=== PATIENT | female | born 1950 | race Hispanic/Latino ===

== ENCOUNTER 2018-03-12 19:48 | Inpatient (IN) | payer OTHER, MEDICARE ==
[~2018-03-12] VITALS: Ht 152.4 cm; Wt 85.9 kg
[~2018-03-12 19:48] MED LIST: ETOMIDATE 2 MG/ML 10 ML VIAL IVP ONE; SUCCINYLCHOLINE CHLORIDE 20 MG/ML 10 ML VIAL IVP ONE
[2018-03-12] MEDS ORDERED: FOSPHENYTOIN SODIUM 500 MG/10ML VIAL IJ ONE (19:56)
[2018-03-12] MEDS ORDERED: SODIUM CHLORIDE 0.9% 500ML 500 ML IV ONE (19:59)
[2018-03-12] MEDS ORDERED: PROPOFOL 1000 MG/100 ML 100 ML IV ONE ×2 (20:05→23:45)
[2018-03-12 20:09] LABS: BASOPHILS % (AUTO) 0.9 % (0.0-5.0); EOSINOPHILS % (AUTO) 2.6 % (0.0-8.0); HEMATOCRIT 41.5 % (36-48); LYMPHOCYTES % (AUTO) 40.5 % (21.0-51.0); MEAN CORPUSCULAR HEMOGLOBIN 31.5 pg (27.0-33.0); MEAN CORPUSCULAR HGB CONC 33.9 g/dL (32.0-36.0); MEAN CORPUSCULAR VOLUME 92.9 fL (79-99); MONOCYTES % (AUTO) 7.8 % (3.0-13.0); NEUTROPHILS % (AUTO) 48.2 % (40.0-77.0); PLATELET COUNT (AUTO) 320 K/uL (130-400); RED BLOOD CELL COUNT(AUTO) 4.46 MIL/uL (4.00-5.50); RED CELL DISTRIBUTION WIDTH 14.7 % (11.0-15.5); WHITE BLOOD COUNT (AUTO) 12.9 K/uL (4.8-10.8)
[2018-03-12 20:24] LABS: CREATININE 1.4 mg/dL (0.5-1.5); INR 0.98 (0.85-1.15); PARTIAL THROMBOPLASTIN TIME 24.5 SEC (26.3-35.5); POTASSIUM 4.5 mmol/L (3.5-5.1); PROTHROMBIN TIME 10.3 SEC (9.6-11.6)
[2018-03-12] MEDS ORDERED: IOPAMIDOL-370 100 ML VIAL IV ONE (20:34)
[2018-03-12 20:44] LABS: ALBUMIN 3.4 g/dL (3.5-5.0); BILIRUBIN,TOTAL 0.2 mg/dL (0.2-1.0); TOTAL PROTEIN, SERUM 8.9 g/dL (6.0-8.3)
[2018-03-12 21:42] LABS: ABG HCO3 21.6 mmol/L (21.0-28.0); ABG OXYGEN SATURATION 94.9 % (95.0-99.0); ABG PCO2 37 mmHg (32-45)
[2018-03-12 21:45] LABS: APPEARANCE,URINE Clear (CLEAR); BILIRUBIN,URINE Negative (NEGATIVE); COLOR,URINE Yellow (YELLOW); GLUCOSE, URINE (UA) TRACE mg/dL (NEGATIVE); KETONES,URINE Negative (NEGATIVE); LEUKOCYTE ESTERASE ,URINE Negative (NEGATIVE); NITRATE,URINE Positive (NEGATIVE); OCCULT BLOOD,URINE Trace (NEGATIVE); PH,URINE 5.5 (5.0-8.0); PROTEIN,URINE 300 (NEGATIVE); UROBILINOGEN,URINE 0.2 mg/dL (0.2-1.0)
[2018-03-12 21:53] LABS: AMPHET/METH SCREEN,URINE NEGATIVE (NEGATIVE); BARBITURATE SCREEN, URINE NEGATIVE (NEGATIVE); BENZODIAZEPINES SCREEN,URINE NEGATIVE (NEGATIVE); CANNABINOID SCREEN,URINE NEGATIVE (NEGATIVE); COCAINE SCREEN,URINE NEGATIVE (NEGATIVE); OPIATE SCREEN,URINE NEGATIVE (NEGATIVE); PHENCYCLIDINE SCREEN,URINE NEGATIVE (NEGATIVE)
[2018-03-12 21:58] LABS: BACTERIA,URINE Moderate /HPF (None Seen); SQUAMOUS EPITHELIAL CELL,UR Rare /HPF (0-2)
[2018-03-12] MEDS ORDERED: FENTANYL CITRATE PF 50 MCG/1 ML 2ML VIAL ONE (23:23)
[2018-03-12] MEDS ORDERED: MIDAZOLAM HCL 5 MG/ML 2ML VIAL IV ONE (23:24)
[2018-03-12] MEDS ORDERED: SODIUM CHLORIDE 0.9% 50 ML IV ONE (23:45)
[2018-03-13] VITALS (25 sets, daily range): BP systolic 89–162; BP diastolic 53–111
[2018-03-13] MEDS ORDERED: CEFTRIAXONE 1GM/D5W 50ML 50 ML IV SCH ×2 (00:15→09:00)
[2018-03-13] MEDS ORDERED: CEFTRIAXONE SODIUM 1 GM ONE (00:49)
[2018-03-13] MEDS ORDERED: CEFTRIAXONE SODIUM 1 GM IVP SCH (01:00)
[2018-03-13] MEDS: SODIUM CHLORIDE 0.9% IV SCH ×3 (01:00→18:27)
[2018-03-13] MEDS: PHENYTOIN SODIUM IV SCH ×3 (01:00→18:27)
[2018-03-13] MEDS ORDERED: PHENYTOIN SODIUM 50 MG/ML 2ML VIAL IV ONE (01:55)
[2018-03-13] MEDS ORDERED: SODIUM CHLORIDE 0.9% 100 ML IV ONE (01:56)
[2018-03-13] MEDS: PANTOPRAZOLE 40 MG/VIAL IVP SCH ×2 (02:24→11:43)
[2018-03-13] MEDS: SODIUM CHLORIDE 0.9% 1000ML 1,000 ML IV SCH ×2 (02:24→13:35)
[2018-03-13] MEDS: PROPOFOL 1000 MG/100 ML 100 ML IV PRN ×3 (04:26→17:24)
[2018-03-13] MEDS ORDERED: GADOBENATE DIMEGLUMINE 10 ML IV ONE (08:05)
[2018-03-13] MEDS ORDERED: ENOXAPARIN SODIUM 40 MG/0.4 ML SYRINGE SQ SCH (09:00)
[2018-03-13 10:13] LABS: ABG BASE EXCESS 0.2 mmol/L (-2.0-3.0); ABG HCO3 23.9 mmol/L (21.0-28.0); ABG OXYGEN SATURATION 96.2 % (95.0-99.0); ABG PCO2 36 mmHg (32-45)
[2018-03-13] MEDS ORDERED: MAGNESIUM 2GM PREMIX 50ML 50 ML IV PRN (10:15)
[2018-03-13] MEDS ORDERED: POTASSIUM CHLORIDE 10% ELIXIR 20 MEQ/15 ML UDCUP PO PRN (10:15)
[2018-03-13] MEDS ORDERED: LIDOCAINE HCL-MPF 1% 2ML VIAL IVP PRN ×2 (10:15)
[2018-03-13] MEDS ORDERED: POTASSIUM CHLORIDE 20 MEQ ERTAB PO PRN ×2 (10:15)
[2018-03-13] MEDS ORDERED: DEXTROSE 50%-WATER 50 ML DISP.SYRIN IV PRN (10:15)
[2018-03-13] MEDS ORDERED: GLUCAGON 1MG KIT 1 MG ML IM PRN (10:15)
[2018-03-13] MEDS ORDERED: POTASSIUM CHLORIDE 20MEQ/100ML 100 ML IV PRN (10:15)
[2018-03-13] MEDS ORDERED: NIMODIPINE 30 MG CAP PO SCH (10:30)
[2018-03-13 10:47] LABS: CREATININE 1.2 mg/dL (0.5-1.5); MAGNESIUM 1.7 mg/dL (1.80-2.40); MEAN CORPUSCULAR HEMOGLOBIN 32.3 pg (27.0-33.0); MEAN CORPUSCULAR VOLUME 92.2 fL (79-99); PLATELET COUNT (AUTO) 247 K/uL (130-400); RED BLOOD CELL COUNT(AUTO) 4.01 MIL/uL (4.00-5.50); RED CELL DISTRIBUTION WIDTH 14.7 % (11.0-15.5); WHITE BLOOD COUNT (AUTO) 10.8 K/uL (4.8-10.8)
[2018-03-13] MEDS: INSULIN HUMULIN R 100 UNIT/ML 3ML SQ SCH ×3 (11:30→21:00)
[2018-03-13] MEDS ORDERED: COMPOUND IV MISC 1 EACH IVSOLN MISC PRN (11:45)
[2018-03-13] MEDS ORDERED: GENTAMICIN PROTOCOL PER PHARMACY IV SCH (13:45)
[2018-03-13] MEDS ORDERED: CEFAZOLIN 2GM / 50 ML 50 ML IV SCH (13:45)
[2018-03-13 14:18] LABS: GLUCOSE, CSF 112 mg/dL (40-70); TOTAL PROTEIN, CSF 142 mg/dL (15-45)
[2018-03-13 14:27] LABS: APPEARANCE,CSF SLIGHTLY CLOUDY (CLEAR); COLOR,CSF PINK (COLORLESS); CSF TUBE NUMBER 1
[2018-03-13 14:29] LABS: RED BLOOD CELL1,CSF 1275 CMM (0-0); WHITE BLOOD CELL1,CSF 3 CMM (0-5)
[2018-03-13] MEDS: CEFAZOLIN SODIUM 1 GM VIAL IVP SCH ×2 (15:54→21:08)
[2018-03-13] MEDS: MIDAZOLAM 100MG-0.9% NS 100ML 100 ML IV PRN (18:27)
[2018-03-13] MEDS: VALPROATE SOD 250 MG/5 ML (PO) PO SCH (21:07)
[2018-03-13] MEDS: GENTAMICIN 80 MG/NS 100 ML PB 100 ML IV SCH (21:08)
[2018-03-13] MEDS: LEVETIRACETAM 500 MG in SODIUM CHLORIDE 0.9% 100 ML IV SCH (21:10)
[2018-03-13] MEDS: CHLORHEXIDINE GLUCONATE 473 ML MOUTHWASH MM SCH (21:12)
[2018-03-14] VITALS (32 sets, daily range): BP systolic 76–164; BP diastolic 50–113
[2018-03-14] MEDS: PANTOPRAZOLE 40 MG/VIAL IVP SCH ×3 (00:15→23:06)
[2018-03-14] MEDS: PHENYTOIN SODIUM IV SCH ×3 (00:31→17:06)
[2018-03-14] MEDS: SODIUM CHLORIDE 0.9% IV SCH ×3 (00:31→17:06)
[2018-03-14] MEDS: SODIUM CHLORIDE 0.9% 1000ML 1,000 ML IV SCH ×2 (00:36→17:06)
[2018-03-14] MEDS: PROPOFOL 1000 MG/100 ML 100 ML IV PRN ×2 (02:41→08:31)
[2018-03-14 03:58] LABS: BASOPHILS % (AUTO) 0.5 % (0.0-5.0); EOSINOPHILS % (AUTO) 1.1 % (0.0-8.0); LYMPHOCYTES % (AUTO) 19.6 % (21.0-51.0); MEAN CORPUSCULAR HEMOGLOBIN 32.5 pg (27.0-33.0); MEAN CORPUSCULAR HGB CONC 35.2 g/dL (32.0-36.0); MEAN CORPUSCULAR VOLUME 92.2 fL (79-99); MONOCYTES % (AUTO) 7.4 % (3.0-13.0); NEUTROPHILS % (AUTO) 71.4 % (40.0-77.0); PLATELET COUNT (AUTO) 260 K/uL (130-400); RED BLOOD CELL COUNT(AUTO) 4.12 MIL/uL (4.00-5.50); RED CELL DISTRIBUTION WIDTH 14.8 % (11.0-15.5); WHITE BLOOD COUNT (AUTO) 9.2 K/uL (4.8-10.8)
[2018-03-14 03:59] LABS: ABG BASE EXCESS 1.6 mmol/L (-2.0-3.0); ABG HCO3 24.6 mmol/L (21.0-28.0); ABG PCO2 34 mmHg (32-45)
[2018-03-14 04:04] LABS: ALBUMIN 2.8 g/dL (3.5-5.0); BILIRUBIN,TOTAL 0.3 mg/dL (0.2-1.0); CREATININE 1.1 mg/dL (0.5-1.5); PHENYTOIN (DILANTIN) 3.5 mcg/mL (10.0-20.0); POTASSIUM 3.7 mmol/L (3.5-5.1); TOTAL PROTEIN, SERUM 7.9 g/dL (6.0-8.3)
[2018-03-14] MEDS: HYDRALAZINE HCL 20 MG/ML VIAL IV PRN (04:50)
[2018-03-14] MEDS: CEFAZOLIN SODIUM 1 GM VIAL IVP SCH (05:29)
[2018-03-14] MEDS: INSULIN HUMULIN R 100 UNIT/ML 3ML SQ SCH ×4 (07:30→23:30)
[2018-03-14] MEDS: GENTAMICIN 80 MG/NS 100 ML PB 100 ML IV SCH (08:24)
[2018-03-14] MEDS: LEVETIRACETAM 500 MG in SODIUM CHLORIDE 0.9% 100 ML IV SCH ×2 (08:24→20:45)
[2018-03-14] MEDS: VALPROATE SOD 250 MG/5 ML (PO) PO SCH ×2 (08:24→20:45)
[2018-03-14] MEDS: CHLORHEXIDINE GLUCONATE 473 ML MOUTHWASH MM SCH ×3 (08:25→20:09)
[2018-03-14] MEDS: MIDAZOLAM 100MG-0.9% NS 100ML 100 ML IV PRN (19:24)
[2018-03-14] MEDS ORDERED: FENTANYL 2500MCG+NS 250ML 250 ML IV ONE (20:24)
[2018-03-15] VITALS (25 sets, daily range): BP systolic 120–187; BP diastolic 52–94
[2018-03-15] MEDS: PHENYTOIN SODIUM IV SCH ×3 (00:13→18:05)
[2018-03-15] MEDS: SODIUM CHLORIDE 0.9% IV SCH ×3 (00:13→18:05)
[2018-03-15 04:17] LABS: BASOPHILS % (AUTO) 0.7 % (0.0-5.0); EOSINOPHILS % (AUTO) 2.9 % (0.0-8.0); HEMATOCRIT 34.9 % (36-48); LYMPHOCYTES % (AUTO) 14.9 % (21.0-51.0); MEAN CORPUSCULAR HEMOGLOBIN 31.9 pg (27.0-33.0); MEAN CORPUSCULAR HGB CONC 34.4 g/dL (32.0-36.0); MEAN CORPUSCULAR VOLUME 92.7 fL (79-99); MONOCYTES % (AUTO) 10.2 % (3.0-13.0); NEUTROPHILS % (AUTO) 71.3 % (40.0-77.0); PLATELET COUNT (AUTO) 234 K/uL (130-400); RED BLOOD CELL COUNT(AUTO) 3.77 MIL/uL (4.00-5.50); WHITE BLOOD COUNT (AUTO) 8.9 K/uL (4.8-10.8)
[2018-03-15 04:30] LABS: POTASSIUM 3.4 mmol/L (3.5-5.1)
[2018-03-15] MEDS: POTASSIUM CHLORIDE 20MEQ/100ML 100 ML IV PRN (05:05)
[2018-03-15] MEDS: SODIUM CHLORIDE 0.9% 1000ML 1,000 ML IV SCH ×2 (05:06→15:00)
[2018-03-15] MEDS: INSULIN HUMULIN R 100 UNIT/ML 3ML SQ SCH ×4 (05:56→23:41)
[2018-03-15] MEDS: PANTOPRAZOLE 40 MG/VIAL IVP SCH ×2 (09:03→23:35)
[2018-03-15] MEDS: VALPROATE SOD 250 MG/5 ML (PO) PO SCH ×2 (09:03→20:58)
[2018-03-15] MEDS: CHLORHEXIDINE GLUCONATE 473 ML MOUTHWASH MM SCH ×2 (09:04→20:59)
[2018-03-15] MEDS: LEVETIRACETAM 500 MG in SODIUM CHLORIDE 0.9% 100 ML IV SCH ×2 (09:04→20:59)
[2018-03-15] MEDS: FENTANYL 2500MCG+NS 250ML 250 ML IV PRN (15:00)
[2018-03-15] MEDS: MIDAZOLAM 100MG-0.9% NS 100ML 100 ML IV PRN (20:50)
[2018-03-16] VITALS (28 sets, daily range): BP systolic 88–174; BP diastolic 43–87
[2018-03-16] MEDS: PHENYTOIN SODIUM IV SCH ×3 (00:14→16:53)
[2018-03-16] MEDS: SODIUM CHLORIDE 0.9% IV SCH ×3 (00:14→16:53)
[2018-03-16 04:12] LABS: HEMATOCRIT 31.4 % (36-48); MEAN CORPUSCULAR HEMOGLOBIN 32.7 pg (27.0-33.0); MEAN CORPUSCULAR HGB CONC 35.1 g/dL (32.0-36.0); MEAN CORPUSCULAR VOLUME 93.1 fL (79-99); NUCLEATED RED BLOOD CELLS 0.1 % (0.0-0.19); PLATELET COUNT (AUTO) 203 K/uL (130-400); RED BLOOD CELL COUNT(AUTO) 3.37 MIL/uL (4.00-5.50); RED CELL DISTRIBUTION WIDTH 14.4 % (11.0-15.5); WHITE BLOOD COUNT (AUTO) 12.2 K/uL (4.8-10.8)
[2018-03-16 04:25] LABS: PARTIAL THROMBOPLASTIN TIME 30.3 SEC (26.3-35.5); PROTHROMBIN TIME 10.5 SEC (9.6-11.6)
[2018-03-16 04:28] LABS: CREATININE 0.8 mg/dL (0.5-1.5); MAGNESIUM 1.8 mg/dL (1.80-2.40); PHOSPHORUS 2.5 mg/dL (2.5-4.9); POTASSIUM 3.7 mmol/L (3.5-5.1)
[2018-03-16] MEDS: INSULIN HUMULIN R 100 UNIT/ML 3ML SQ SCH ×3 (05:07→18:36)
[2018-03-16] MEDS: SODIUM CHLORIDE 0.9% 1000ML 1,000 ML IV SCH ×2 (06:44→20:53)
[2018-03-16 07:49] LABS: ABG BASE EXCESS 0.3 mmol/L (-2.0-3.0); ABG HCO3 24.9 mmol/L (21.0-28.0); ABG OXYGEN SATURATION 96.4 % (95.0-99.0); ABG PCO2 40 mmHg (32-45)
[2018-03-16] MEDS ORDERED: GADOBENATE DIMEGLUMINE 20 ML IV ONE (07:50)
[2018-03-16] MEDS: PANTOPRAZOLE 40 MG/VIAL IVP SCH ×2 (07:59→20:53)
[2018-03-16] MEDS: LEVETIRACETAM 500 MG in SODIUM CHLORIDE 0.9% 100 ML IV SCH ×2 (07:59→20:52)
[2018-03-16] MEDS: CHLORHEXIDINE GLUCONATE 473 ML MOUTHWASH MM SCH ×2 (08:00→20:52)
[2018-03-16] MEDS: VALPROATE SOD 250 MG/5 ML (PO) PO SCH ×2 (08:00→20:51)
[2018-03-16] MEDS: FENTANYL 2500MCG+NS 250ML 250 ML IV PRN (08:59)
[2018-03-16] MEDS: HYDRALAZINE HCL 20 MG/ML VIAL IV PRN (10:20)
[2018-03-16] MEDS ORDERED: RENAL DOSE IV PRN (16:30)
[2018-03-16] MEDS ORDERED: VANCOMYCIN PROTOCOL PER PHARMACY IV SCH (16:30)
[2018-03-16] MEDS ORDERED: VANCOMYCIN 1.25 GM in SODIUM CHLORIDE 0.9% 250 ML IV SCH (16:45)
[2018-03-16] MEDS: ACETAMINOPHEN ELIXIR 650 MG/20.3 ML UDCUP PEG PRN (16:47)
[2018-03-16] MEDS ORDERED: COMPOUND IV REFRIGERATED 1 EACH IVSOLN MISC PRN (17:00)
[2018-03-16] MEDS: ZOSYN 3.375GM+NS 50ML 50 ML IV SCH (18:07)
[2018-03-17] VITALS (30 sets, daily range): BP systolic 113–179; BP diastolic 49–102
[2018-03-17] MEDS: PHENYTOIN SODIUM IV SCH ×3 (00:27→16:49)
[2018-03-17] MEDS: SODIUM CHLORIDE 0.9% IV SCH ×3 (00:27→16:49)
[2018-03-17] MEDS: ZOSYN 3.375GM+NS 50ML 50 ML IV SCH ×3 (02:14→17:05)
[2018-03-17 04:33] LABS: HEMATOCRIT 33.4 % (36-48); MEAN CORPUSCULAR HEMOGLOBIN 32.2 pg (27.0-33.0); MEAN CORPUSCULAR HGB CONC 34.5 g/dL (32.0-36.0); MEAN CORPUSCULAR VOLUME 93.4 fL (79-99); PLATELET COUNT (AUTO) 225 K/uL (130-400); RED BLOOD CELL COUNT(AUTO) 3.58 MIL/uL (4.00-5.50); RED CELL DISTRIBUTION WIDTH 14.5 % (11.0-15.5); WHITE BLOOD COUNT (AUTO) 12.1 K/uL (4.8-10.8)
[2018-03-17 04:44] LABS: CREATININE 0.9 mg/dL (0.5-1.5); MAGNESIUM 1.9 mg/dL (1.80-2.40); POTASSIUM 4.1 mmol/L (3.5-5.1)
[2018-03-17] MEDS: INSULIN HUMULIN R 100 UNIT/ML 3ML SQ SCH ×4 (06:00→17:51)
[2018-03-17] MEDS: FENTANYL 2500MCG+NS 250ML 250 ML IV PRN (06:13)
[2018-03-17] MEDS: VALPROATE SOD 250 MG/5 ML (PO) PO SCH ×2 (08:37→21:42)
[2018-03-17] MEDS: CHLORHEXIDINE GLUCONATE 473 ML MOUTHWASH MM SCH ×2 (08:38→21:00)
[2018-03-17] MEDS: PANTOPRAZOLE 40 MG/VIAL IVP SCH (08:38)
[2018-03-17] MEDS: LEVETIRACETAM 500 MG in SODIUM CHLORIDE 0.9% 100 ML IV SCH ×2 (08:38→21:37)
[2018-03-17] MEDS: VANCOMYCIN 500MG+NS 100ML 100 ML IV SCH ×2 (08:38→21:35)
[2018-03-17] MEDS: HYDRALAZINE HCL 20 MG/ML VIAL IV PRN (09:19)
[2018-03-17] MEDS: PROPOFOL 1000 MG/100 ML 100 ML IV PRN (09:58)
[2018-03-17] MEDS: SODIUM CHLORIDE 0.9% 1000ML 1,000 ML IV SCH ×2 (09:58→21:33)
[2018-03-17] MEDS ORDERED: PROPOFOL 1000 MG/100 ML IV PRN (10:00)
[2018-03-17] MEDS ORDERED: PROPOFOL 1000 MG/100 ML 100 ML IV PRN (10:15)
[2018-03-17] MEDS ORDERED: MAGNESIUM 2GM PREMIX 50ML 50 ML IV SCH (12:00)
[2018-03-17] MEDS ORDERED: NOREPINEPHRINE 4MG/NS 250ML 250 ML IV SCH (12:00)
[2018-03-17 12:01] LABS: ABG HCO3 24.1 mmol/L (21.0-28.0); ABG PCO2 31 mmHg (32-45)
[2018-03-17] MEDS: NICARDIPINE HCL 100 MG in SODIUM CHLORIDE 0.9% 60 ML IV PRN (12:01)
[2018-03-17] MEDS: ACETAMINOPHEN ELIXIR 650 MG/20.3 ML UDCUP PEG PRN (13:08)
[2018-03-17] MEDS ORDERED: HALOPERIDOL LACTATE 5 MG/ML VIAL IM PRN (13:45)
[2018-03-17] MEDS ORDERED: FUROSEMIDE 10 MG/ML 2ML VIAL IV SCH (13:45)
[2018-03-17] MEDS ORDERED: METOPROLOL TARTRATE 1 MG/ML 5ML VIAL IV PRN (16:45)
[2018-03-17] MEDS ORDERED: IPRATROPIUM 0.5 MG/2.5 ML INH IH ONE (18:25)
[2018-03-17] MEDS: IPRATROPIUM 0.5 MG/2.5 ML INH IH SCH (18:30)
[2018-03-17] MEDS: RACEPINEPHRINE HCL 2.25% 0.5 ML NEB SOLN NEB SCH ×2 (20:49→23:36)
[2018-03-17] MEDS: DEXAMETHASONE IV SCH (21:01)
[2018-03-17] MEDS: [UNRECOGNIZED DRUG - OTHER] IV SCH (21:01)
[2018-03-17] MEDS: POLYETHYLENE GLYCOL 3350 17 GM POWD.PACK PO SCH (21:44)
[2018-03-17] MEDS: HALOPERIDOL LACTATE 5 MG/ML VIAL IM PRN (22:53)
[2018-03-18] VITALS (25 sets, daily range): BP systolic 118–173; BP diastolic 59–112
[2018-03-18] MEDS: PANTOPRAZOLE 40 MG/VIAL IVP SCH ×2 (00:15→08:27)
[2018-03-18] MEDS: INSULIN HUMULIN R 100 UNIT/ML 3ML SQ SCH ×5 (00:21→23:52)
[2018-03-18] MEDS: SODIUM CHLORIDE 0.9% IV SCH ×3 (00:22→17:20)
[2018-03-18] MEDS: PHENYTOIN SODIUM IV SCH ×3 (00:22→17:20)
[2018-03-18] MEDS: IPRATROPIUM 0.5 MG/2.5 ML INH IH SCH ×5 (00:31→23:35)
[2018-03-18] MEDS: ZOSYN 3.375GM+NS 50ML 50 ML IV SCH ×3 (01:04→17:56)
[2018-03-18] MEDS: RACEPINEPHRINE HCL 2.25% 0.5 ML NEB SOLN NEB SCH ×5 (03:27→20:45)
[2018-03-18 04:00] LABS: ABG BASE EXCESS 2.8 mmol/L (-2.0-3.0); ABG HCO3 24.8 mmol/L (21.0-28.0); ABG OXYGEN SATURATION 98.1 % (95.0-99.0); ABG PCO2 31 mmHg (32-45)
[2018-03-18] MEDS: DEXAMETHASONE IV SCH (04:41)
[2018-03-18] MEDS: [UNRECOGNIZED DRUG - OTHER] IV SCH (04:41)
[2018-03-18 05:56] LABS: HEMATOCRIT 32.2 % (36-48); MEAN CORPUSCULAR VOLUME 91.7 fL (79-99); NUCLEATED RED BLOOD CELLS 0.1 % (0.0-0.19); PLATELET COUNT (AUTO) 242 K/uL (130-400); RED BLOOD CELL COUNT(AUTO) 3.51 MIL/uL (4.00-5.50); RED CELL DISTRIBUTION WIDTH 14.5 % (11.0-15.5)
[2018-03-18 06:28] LABS: ALBUMIN 2.1 g/dL (3.5-5.0); BILIRUBIN,TOTAL 0.5 mg/dL (0.2-1.0); CREATININE 0.8 mg/dL (0.5-1.5); PHOSPHORUS 2.5 mg/dL (2.5-4.9); POTASSIUM 3.2 mmol/L (3.5-5.1); TOTAL PROTEIN, SERUM 7.9 g/dL (6.0-8.3)
[2018-03-18] MEDS: POTASSIUM CHLORIDE 20MEQ/100ML 100 ML IV PRN (06:32)
[2018-03-18 07:05] LABS: PHENYTOIN (DILANTIN) 2.7 mcg/mL (10.0-20.0)
[2018-03-18] MEDS: VALPROATE SOD 250 MG/5 ML (PO) PO SCH ×2 (08:26→20:04)
[2018-03-18] MEDS: HALOPERIDOL LACTATE 5 MG/ML VIAL IM PRN ×2 (08:26→21:09)
[2018-03-18] MEDS: POTASSIUM CHLORIDE 10% ELIXIR 20 MEQ/15 ML UDCUP PO PRN ×2 (08:26→20:04)
[2018-03-18] MEDS: LEVETIRACETAM 500 MG in SODIUM CHLORIDE 0.9% 100 ML IV SCH ×2 (08:27→19:59)
[2018-03-18] MEDS: VANCOMYCIN 500MG+NS 100ML 100 ML IV SCH ×2 (08:27→21:08)
[2018-03-18] MEDS: POLYETHYLENE GLYCOL 3350 17 GM POWD.PACK PO SCH (08:28)
[2018-03-18] MEDS: CHLORHEXIDINE GLUCONATE 473 ML MOUTHWASH MM SCH (08:28)
[2018-03-18] MEDS ORDERED: LORAZEPAM 2 MG/ML 1 ML VIAL ONE (10:40)
[2018-03-18] MEDS ORDERED: LORAZEPAM 2 MG/ML 1 ML VIAL IVP SCH (12:01)
[2018-03-18] MEDS ORDERED: IOPAMIDOL-370 100 ML VIAL IV ONE (12:35)
[2018-03-18] MEDS: [UNRECOGNIZED DRUG - OTHER] IV NR ×2 (13:32→20:50)
[2018-03-18] MEDS: DEXAMETHASONE IV NR ×2 (13:32→20:50)
[2018-03-18] MEDS: NICARDIPINE HCL 100 MG in SODIUM CHLORIDE 0.9% 60 ML IV PRN (19:56)
[2018-03-18 21:00] LABS: POTASSIUM 3.4 mmol/L (3.5-5.1)
[2018-03-18 21:01] LABS: MAGNESIUM 1.9 mg/dL (1.80-2.40)
[2018-03-19] VITALS (17 sets, daily range): BP systolic 114–153; BP diastolic 57–87
[2018-03-19] MEDS: RACEPINEPHRINE HCL 2.25% 0.5 ML NEB SOLN NEB SCH ×2 (00:28→03:27)
[2018-03-19] MEDS: PHENYTOIN SODIUM IV SCH ×3 (00:29→17:00)
[2018-03-19] MEDS: SODIUM CHLORIDE 0.9% IV SCH ×3 (00:29→17:00)
[2018-03-19] MEDS: POTASSIUM CHLORIDE 20MEQ/100ML 100 ML IV PRN (00:35)
[2018-03-19] MEDS: POTASSIUM CHLORIDE 10% ELIXIR 20 MEQ/15 ML UDCUP PO PRN (01:49)
[2018-03-19] MEDS: ZOSYN 3.375GM+NS 50ML 50 ML IV SCH ×2 (01:55→11:14)
[2018-03-19] MEDS: SODIUM CHLORIDE 0.9% 1000ML 1,000 ML IV SCH (01:56)
[2018-03-19] MEDS: [UNRECOGNIZED DRUG - OTHER] IV NR ×2 (03:26→13:03)
[2018-03-19] MEDS: DEXAMETHASONE IV NR ×2 (03:26→13:03)
[2018-03-19 04:51] LABS: HEMATOCRIT 33.7 % (36-48); MEAN CORPUSCULAR HEMOGLOBIN 32.2 pg (27.0-33.0); PLATELET COUNT (AUTO) 286 K/uL (130-400); RED BLOOD CELL COUNT(AUTO) 3.66 MIL/uL (4.00-5.50); RED CELL DISTRIBUTION WIDTH 14.2 % (11.0-15.5); WHITE BLOOD COUNT (AUTO) 7.8 K/uL (4.8-10.8)
[2018-03-19 05:18] LABS: CREATININE 0.8 mg/dL (0.5-1.5); PHOSPHORUS 2.5 mg/dL (2.5-4.9)
[2018-03-19] MEDS: INSULIN HUMULIN R 100 UNIT/ML 3ML SQ SCH ×2 (06:00→16:44)
[2018-03-19] MEDS: IPRATROPIUM 0.5 MG/2.5 ML INH IH SCH ×2 (06:16→11:27)
[2018-03-19] MEDS: PANTOPRAZOLE 40 MG/VIAL IVP SCH (08:15)
[2018-03-19] MEDS: VALPROATE SOD 250 MG/5 ML (PO) PO SCH (08:15)
[2018-03-19] MEDS: VANCOMYCIN 500MG+NS 100ML 100 ML IV SCH (08:26)
[2018-03-19] MEDS: LEVETIRACETAM 500 MG in SODIUM CHLORIDE 0.9% 100 ML IV SCH (08:39)
[2018-03-19] MEDS: POLYETHYLENE GLYCOL 3350 17 GM POWD.PACK PO SCH (09:00)
== END 2018-03-19 17:40 | disposition short-term general hospital (02) | DRG 207 ==
LOC: EDH 19:48 → EDHIP 22:07 → 2CH 03-13 01:52
PROVIDERS: ADMIT Internal Medicine Nephrology; ATTEND Internal Medicine Nephrology
PROC: 009Y3ZZ Drainage of Lumbar Spinal Cord, Percutaneous Approach (ICD-10-PCS; 2018-03-12)
PROC: 5A1955Z Respiratory Ventilation, Greater than 96 Consecutive Hours (ICD-10-PCS; 2018-03-13)
PROC: 0BH17EZ Insertion of Endotracheal Airway into Trachea, Via Natural or Artificial Opening (ICD-10-PCS; 2018-03-13)
PROC: 5A1935Z Respiratory Ventilation, Less than 24 Consecutive Hours (ICD-10-PCS; principal; 2018-03-18)
DX: J96.01 Acute respiratory failure with hypoxia (principal); G93.6 Cerebral edema; G93.40 Encephalopathy, unspecified; A86 Unspecified viral encephalitis; R13.10 Dysphagia, unspecified; S06.369A Traumatic hemorrhage of cerebrum, unspecified, with loss of consciousness of unspecified duration, initial encounter; Z99.11 Dependence on respirator [ventilator] status; D72.829 Elevated white blood cell count, unspecified; E11.9 Type 2 diabetes mellitus without complications; F03.90 Unspecified dementia, unspecified severity, without behavioral disturbance, psychotic disturbance, mood disturbance, and anxiety; G40.901 Epilepsy, unspecified, not intractable, with status epilepticus; I72.9 Aneurysm of unspecified site; G50.0 Trigeminal neuralgia; I10 Essential (primary) hypertension; M19.90 Unspecified osteoarthritis, unspecified site; M53.82 Other specified dorsopathies, cervical region; W18.30XA Fall on same level, unspecified, initial encounter; Z79.4 Long term (current) use of insulin; Z90.710 Acquired absence of both cervix and uterus; Y93.89 Activity, other specified; Y92.89 Other specified places as the place of occurrence of the external cause; Y99.8 Other external cause status; Z88.8 Allergy status to other drugs, medicaments and biological substances
CPT/HCPCS: 31500; 36415; 36600; 70450; 70470; 70496; 70498; 70553; 71045; 71260; 72125; 74177; 77002; 80048; 80053; 80185; 80202; 80305; 81001; 82550; 82553; 82803; 82945; 82948; 83605; 83735; 83874; 84100; 84132; 84157; 84484; 85025; 85027; 85610; 85651; 85730; 86694; 86735; 86765; 86787; 86788; 87040; 87071; 87076; 87088; 87147; 87186; 87205; 87252; 87483; 89051; 93005; 93970; 94002; 94003; 94640; 94660; 94664; 99291; 99292; A4218; A9577; C9113; J0330; J0360; J0690; J0696; J1100; J1165; J1580; J1630; J1815; J1940; J1953; J2060; J2250; J2543; J2704; J3010; J3370; J3475; J3480; J3490; J7030; J7040; Q2009; Q9967

== ENCOUNTER 2019-04-09 15:06 | Emergency (ER) | payer OTHER, MEDICARE ==
[2019-04-09 15:49] LABS: BASOPHILS % (AUTO) 0.6 % (0.0-5.0); HEMATOCRIT 42.2 % (36-48); LYMPHOCYTES % (AUTO) 13.4 % (21.0-51.0); MEAN CORPUSCULAR HEMOGLOBIN 31.4 pg (27.0-33.0); MEAN CORPUSCULAR HGB CONC 33.5 g/dL (32.0-36.0); MEAN CORPUSCULAR VOLUME 93.6 fL (79-99); MONOCYTES % (AUTO) 3.3 % (3.0-13.0); NEUTROPHILS % (AUTO) 81.7 % (40.0-77.0); PLATELET COUNT (AUTO) 265 K/uL (130-400); RED BLOOD CELL COUNT(AUTO) 4.51 MIL/uL (4.00-5.50); RED CELL DISTRIBUTION WIDTH 13.4 % (11.0-15.5); WHITE BLOOD COUNT (AUTO) 9.9 K/uL (4.8-10.8)
[2019-04-09] MEDS ORDERED: LORAZEPAM 2 MG/ML 1 ML VIAL ONE (15:49)
[2019-04-09 16:00] LABS: APPEARANCE,URINE Cloudy (CLEAR); BILIRUBIN,URINE Negative (NEGATIVE); COLOR,URINE Yellow (YELLOW); GLUCOSE, URINE (UA) Negative (NEGATIVE); KETONES,URINE Negative (NEGATIVE); LEUKOCYTE ESTERASE ,URINE Trace (NEGATIVE); NITRATE,URINE Negative (NEGATIVE); OCCULT BLOOD,URINE Trace (NEGATIVE); PROTEIN,URINE 300 mg/dL (NEGATIVE); UROBILINOGEN,URINE 0.2 mg/dL (0.2-1.0)
[2019-04-09 16:03] LABS: CREATININE 1.2 mg/dL (0.5-1.5); POTASSIUM 4.2 mmol/L (3.5-5.1)
[2019-04-09 16:05] LABS: ALBUMIN 3.6 g/dL (3.5-5.0); BILIRUBIN,TOTAL 0.4 mg/dL (0.2-1.0); TOTAL PROTEIN, SERUM 8.3 g/dL (6.0-8.3)
[2019-04-09 16:15] LABS: CREATINE KINASE, TOTAL 184 U/L (21-232); MYOGLOBIN 161 ng/mL (10-92); TROPONIN I < 0.04 ng/mL (0.00-0.06)
[2019-04-09 16:40] LABS: BACTERIA,URINE Many /HPF (None Seen); RBC,URINE 0-1 /HPF (0-1)
[2019-04-09] MEDS ORDERED: ACETAMINOPHEN 325 MG TAB ONE (17:32)
== END 2019-04-09 17:40 | disposition home or self-care (01) ==
LOC: EDH 15:06
DX: I10 Essential (primary) hypertension (principal); R51 Headache; E11.9 Type 2 diabetes mellitus without complications; J44.9 Chronic obstructive pulmonary disease, unspecified; M19.90 Unspecified osteoarthritis, unspecified site; F03.90 Unspecified dementia, unspecified severity, without behavioral disturbance, psychotic disturbance, mood disturbance, and anxiety; Z79.4 Long term (current) use of insulin; Z87.891 Personal history of nicotine dependence; Z88.8 Allergy status to other drugs, medicaments and biological substances
CPT/HCPCS: 36415; 70450; 80053; 81001; 82550; 83874; 84484 ×2; 85025; 93005; 96374; 99285; J2060